=== PATIENT | male | born 1950 | race African-American/Black ===

== ENCOUNTER 2019-01-21 06:40 | Inpatient (IN) | payer MEDICARE, OTHER ==
[2019-01-18 15:26] VITALS: BMI 31.6
[2019-01-21 07:46] LABS: #Eosinphils 0.3 thou/uL (0.0-0.7); #Lymphocytes 2.1 thou/uL (1.20-3.40); #Monocytes 0.6 thou/uL (0.11-0.59); #Neutrophils 2.3 thou/uL (1.40-6.50); %Basophils 0.2 % (0.0-1.0); %Eosinophils 5.3 % (0.0-10.0); %Lymphocytes 39.6 % (21.0-51.0); %Monocytes 11.3 % (0.0-10.0); %Neutrophils 43.7 % (42.0-75.0); Hemoglobin 15.9 g/dL (14.0-18.0); Mean Corpuscular HGB CONC 33.3 g/dL (32.0-36.0); Mean Corpuscular Hemoglobin 30.8 pg (27.0-31.0); Mean Corpuscular Volume 92.6 fL (78.0-98.0); Mean Platelet Volume 9.1 fL (7.4-10.4); Platelet Count 239 thou/uL (130-400); RBC Distribution Width 11.8 % (11.5-14.5); Red Blood Cell (RBC) Count 5.16 mill/uL (4.70-6.10); White Blood Cell (WBC) Count 5.3 thou/uL (4.8-10.8)
[2019-01-21 08:33] LABS: Anion Gap 19 mmol/L (10-20); BUN (Urea Nitrogen) 24 mg/dL (8.4-25.7); Calc. Creatinine Clearance 58 mL/min (70-130); Calcium 9.6 mg/dL (7.8-10.44); Carbon Dioxide 22 mmol/L (23-31); Chloride 102 mmol/L (98-107); Estimated GFR-MDRD 44; Glucose 464 mg/dL (80-115); Sodium 138 mmol/L (136-145)
[2019-01-21] MEDS ORDERED: Insulin Regular 300 UNITS/3 ML VIAL ONE (08:48)
[2019-01-21] MEDS ORDERED: Sodium Chloride 0.9% 10 ML ONE (10:43)
[2019-01-21] MEDS ORDERED: Fentanyl 100 MCG/2 ML VIAL ONE ×4 (11:02→15:54)
[2019-01-21] MEDS ORDERED: HYDROmorphone 2 MG/ML VIAL ONE (13:36)
[2019-01-21] MEDS ORDERED: hydrALAZINE 20 MG/ML VIAL ONE (15:02)
[2019-01-21] MEDS ORDERED: Ondansetron PF 4 MG/2 ML Vial ONE (15:03)
[2019-01-21] MEDS ORDERED: ePHEDrine 50 MG/ML VIAL ONE (15:03)
[2019-01-21] MEDS ORDERED: Glycopyrrolate 0.2 MG/ML 5 ML SYRINGE ONE (15:03)
[2019-01-21] MEDS ORDERED: diphenhydrAMINE 50 MG/ML VIAL ONE (15:03)
[2019-01-21] MEDS ORDERED: PROPOFOL 200 MG/20 ML VIAL ONE (15:03)
[2019-01-21] MEDS ORDERED: PHENYLEPHRINE-NS 100 MCG/ML 10 ML SYRINGE ONE (15:03)
[2019-01-21] MEDS ORDERED: Rocuronium Bromide 10 MG/ML (10ML VIAL) ONE (15:03)
[2019-01-21] MEDS ORDERED: HYDROmorphone 2 MG/ML VIAL SLOW IVP PRN (15:07)
[2019-01-21] MEDS ORDERED: Promethazine HCl 25 MG/ML VIAL IM PRN ×2 (15:07→18:11)
[2019-01-21] MEDS ORDERED: Promethazine HCl 25 MG/ML VIAL SLOW IVP PRN (15:07)
[2019-01-21] MEDS ORDERED: Ondansetron HCl/PF 4 MG/2 ML Vial IVP PRN (15:07)
[2019-01-21] MEDS ORDERED: Promethazine 25 MG TAB PO PRN (18:11)
[2019-01-21] MEDS ORDERED: Mag-Al 1200 mg/1200 mg/30 ML UDCUP PO PRN (18:11)
[2019-01-21] MEDS ORDERED: Morphine 4 MG/ML VIAL SLOW IVP PRN (18:11)
[2019-01-21] MEDS ORDERED: Promethazine HCl 12.5 MG SUPP PR PRN (18:11)
[2019-01-21] MEDS ORDERED: tiZANidine HCl 4 MG TAB PO PRN (18:11)
[2019-01-21] MEDS ORDERED: traMADol HCl 50 MG TAB PO PRN ×2 (18:11)
[2019-01-21] MEDS ORDERED: diphenhydrAMINE 50 MG/ML VIAL IVP PRN (18:11)
[2019-01-21] MEDS ORDERED: HYDROcodone/Acetaminophen 10/325 mg Tablet PO PRN (18:11)
[2019-01-21] MEDS ORDERED: diphenhydrAMINE 25 MG CAP PO PRN (18:11)
[2019-01-21] MEDS ORDERED: Milk Of Magnesia 30 ML UDCUP PO PRN (18:11)
[2019-01-21] MEDS ORDERED: Ondansetron PF 4 MG/2 ML Vial SLOW IVP PRN (18:15)
[2019-01-21] MEDS ORDERED: Morphine 2 MG/ML SYRINGE SLOW IVP PRN (18:18)
[2019-01-21] MEDS: HYDROcodone/Acetaminophen 10/325 mg Tablet PO PRN ×2 (18:41→20:05)
[2019-01-21] MEDS: Sodium Chloride 0.9% 1,000 ML IV SCH (19:00)
--- NOTE | 2019-01-21 19:01 | OP ---
DATE OF PROCEDURE: 01/21/2019 SHEET METAL PATTERN CUTTER: Latoya Lal PA-C PROCEDURES PERFORMED: Right L4-L5 laminectomy, facetectomy, foraminotomy, interbody arthrodesis, intervertebral biomechanical device, local morselized autograft, demineralized bone matrix, posterolateral arthrodesis, pedicle screw instrumentation, L4-L5. DESCRIPTION OF PROCEDURE: The patient was brought to the operating room and intubated. He was rolled in the prone position on gel-filled chest rolls. An incision was made exposing L4 and L5 bilaterally and the level was confirmed by x-ray. We performed right L4-L5 laminectomy, facetectomy, foraminotomy, completely decompressing right L4 and right L5. There was obvious scar tissue in this region and I could see some CSF in this region, but no gustavo dural tear. Next, the disk was incised and debrided and the bony endplates decorticated for the purpose of arthrodesis. An appropriate-sized intervertebral biomechanical PEEK device was brought into the field, filled with demineralized bone matrix, local morselized autograft, and tapped in place securely at L4-5. Next, pedicle screws were placed at L4 and L5 on the right using lateral fluoroscopic guidance and the position was confirmed by x-ray. Carlos was secured between the screws, connected by nuts, which were final tightened. The wound was then extensively irrigated. MAC hemostasis was secured. Combination of demineralized bone matrix and local morselized autograft was laid over the lamina and posterolateral surfaces for the purpose of arthrodesis. Vancomycin powder was applied and the wound was closed in anatomic layers. Job ID: [id number]
[2019-01-21] MEDS ORDERED: cloNIDine 0.1 MG TAB PO PRN (19:42)
[2019-01-21] MEDS ORDERED: hydrALAZINE 20 MG/ML VIAL SLOW IVP PRN (19:42)
[2019-01-21] MEDS ORDERED: Montelukast Sodium 10 mg Tablet PO SCH (21:00)
[2019-01-21] MEDS ORDERED: tiZANidine HCl 4 MG TAB PO SCH (21:00)
[2019-01-21] MEDS ORDERED: Insulin Glargine 60 UNITS in Pre-Filled Syringe 1 EACH SC SCH (21:00)
[2019-01-21] MEDS: Gabapentin 300 MG CAP PO SCH (21:20)
[2019-01-21] MEDS: Carvedilol 6.25 MG TAB PO SCH (21:21)
[2019-01-21] MEDS: Terazosin HCl 5 MG CAP PO SCH (21:22)
--- NOTE | 2019-01-21 21:44 | PDOC.PN ---
- Subjective Encounter Start Date: 01/21/19 Encounter Start Time: 08:30 -: old records requested/rev Patient seen and examined. No new complaints. No overnight events pt has back pain no chest pain - Objective MAR Reviewed: Yes Vital Signs & Weight: Vital Signs (12 hours) Temp Pulse Resp BP BP Pulse Ox 01/21/19 21:21 189/88 H 01/21/19 20:07 82 18 166/79 H 01/21/19 19:40 98.9 F 83 18 178/95 H 99 01/21/19 18:05 67 16 197/86 H 01/21/19 17:20 65 16 187/85 H 01/21/19 16:50 98.1 F 67 16 195/91 H 94 L Weight Weight 233 lb Result Diagrams: 01/21/19 07:30 01/21/19 07:30 Additional Labs: Accuchecks 01/21/19 01/21/19 01/21/19 21:18 18:06 12:30 POC Glucose 285 H 260 H 258 H Phys Exam - Physical Examination Constitutional: NAD HEENT: PERRLA, moist MMs, sclera anicteric Neck: no JVD, supple Respiratory: no wheezing, no rales, no rhonchi Cardiovascular: RRR, no significant murmur, no rub Gastrointestinal: soft, non-tender, no distention, positive bowel sounds Musculoskeletal: no edema, pulses present surgical site with dressing Neurological: non-focal, normal sensation, moves all 4 limbs Lymphatic: no nodes Psychiatric: normal affect, A&O x 3 Skin: no rash, normal turgor Dx/Plan (1) S/P lumbar laminectomy Code(s): Z98.890 - OTHER SPECIFIED POSTPROCEDURAL STATES Status: Acute (2) Hypertension Code(s): I10 - ESSENTIAL (PRIMARY) HYPERTENSION Status: Chronic (3) Obesity (BMI 30.0-34.9) Code(s): E66.9 - OBESITY, UNSPECIFIED Status: Chronic (4) Diabetes type 2, controlled Code(s): E11.9 - TYPE 2 DIABETES MELLITUS WITHOUT COMPLICATIONS Status: Chronic (5) Anxiety and depression Code(s): F41.9 - ANXIETY DISORDER, UNSPECIFIED; F32.9 - MAJOR DEPRESSIVE DISORDER, SINGLE EPISODE, UNSPECIFIED Status: Chronic (6) GERD (gastroesophageal reflux disease) Code(s): K21.9 - GASTRO-ESOPHAGEAL REFLUX DISEASE WITHOUT ESOPHAGITIS Status: Chronic (7) CKD (chronic kidney disease) stage 3, GFR 30-59 ml/min Code(s): N18.3 - CHRONIC KIDNEY DISEASE, STAGE 3 (MODERATE) Status: Chronic - Plan cont current plan of care, PT/OT, DVT proph w/SCDs * code status: Full code * home medication reconciled * for diabetes hyperglycemia protocol treatment * PT/OT * pain control * post operative care as per surgeon * medication reviewed as below * symptomatic treatment. * PRN antihypertensive meds * continue IVF. * will follow Review of Systems - Review of Systems ENT: negative: Ear Pain, Ear Discharge, Nose Pain, Nose Discharge, Nose Congestion, Mouth Pain, Mouth Swelling, Throat Pain, Throat Swelling, Other Respiratory: negative: Cough, Dry, Shortness of Breath, Hemoptysis, SOB with Excertion, Pleuritic Pain, Sputum, Wheezing Cardiovascular: negative: chest pain, palpitations, orthopnea, paroxysmal nocturnal dyspnea, edema, light headedness, other Gastrointestinal: negative: Nausea, Vomiting, Abdominal Pain, Diarrhea, Constipation, Melena, Hematochezia, Other Genitourinary: negative: Dysuria, Frequency, Incontinence, Hematuria, Retention , Other Musculoskeletal: Back Pain. negative: Neck Pain, Shoulder Pain, Arm Pain, Hand Pain, Leg Pain, Foot Pain, Other Skin: negative: Rash, Lesions, Hernando, Bruising, Other - Medications/Allergies Allergies/Adverse Reactions: Allergies Allergy/AdvReac Type Severity Reaction Status Date / Time No Known Allergies Allergy Unverified 01/18/19 14:57 Medications: Current Medications Hydrocodone Bitart/Acetaminophen ([place] 10/325) 1 tab PO Q4H PRN PRN Reason: PAIN (1-3) Last Admin: 01/21/19 20:05 Dose: 1 tab Hydrocodone Bitart/Acetaminophen ([place] 10/325) 2 tab PO Q4H PRN PRN Reason: PAIN (4-6) Al Hydroxide/Mg Hydroxide (Maalox) 30 ml PO Q4H PRN PRN Reason: Heartburn or Indigestion Amlodipine Besylate (Norvasc) 10 mg PO QAM [facility] Carvedilol (Coreg) 6.25 mg PO BID ADA Last Admin: 01/21/19 21:21 Dose: 6.25 mg Clonidine (Catapres) 0.1 mg PO QAM [facility] Clonidine (Catapres) 0.1 mg PO Q4H PRN PRN Reason: Hypertension Dextrose/Water (Dextrose 50%) 25 gm SLOW IVP PRN PRN PRN Reason: Hypoglycemia Diphenhydramine HCl (Benadryl) 25 mg PO Q6H PRN PRN Reason: Itching Diphenhydramine HCl (Benadryl) 25 mg IVP Q6H PRN PRN Reason: Itching Gabapentin (Neurontin) 300 mg PO QID [facility] Last Admin: 01/21/19 21:20 Dose: 300 mg Glucagon (Glucagon) 1 mg IM PRN PRN PRN Reason: Hypoglycemia Hydralazine HCl (Apresoline) 10 mg SLOW IVP Q4H PRN PRN Reason: SBP > 180 and HR < 70 Sodium Chloride (Normal Saline 0.9%) 1,000 mls @ 75 mls/hr IV .[id number] [facility] Insulin Glargine 60 units/ (Miscellaneous Medication) 0.6 mls @ 0 mls/hr SC QPM [facility] Last Admin: 01/21/19 21:18 Dose: 0.6 mls Dextrose/Water (D5w) 1,000 mls @ 0 mls/hr IV .Q0M PRN PRN Reason: Hypoglycemia Insulin Human Lispro (Humalog) 6 units SC 1130,1700 [facility] Insulin Human Lispro (Humalog) 10 units SC 0730 [facility] Loratadine (Claritin) 10 mg PO QAM [facility] Magnesium Hydroxide (Milk Of Magnesium) 30 ml PO Q12H PRN PRN Reason: Constipation Montelukast Sodium (Singulair) 10 mg PO QPM [facility] Last Admin: 01/21/19 21:19 Dose: 10 mg Morphine Sulfate (Morphine) 2 mg SLOW IVP Q1H PRN PRN Reason: .MODERATE BREAKTHROUGH PAIN Morphine Sulfate (Morphine) 4 mg SLOW IVP Q1H PRN PRN Reason: SEVERE BREAKTHROUGH PAIN Ondansetron HCl (Zofran) 4 mg SLOW IVP Q8H PRN PRN Reason: Nausea/Vomiting Pantoprazole Sodium (Protonix) 40 mg PO DAILY [facility] Promethazine HCl (Phenergan) 12.5 mg IM Q4H PRN PRN Reason: Nausea/Vomiting Promethazine HCl (Phenergan) 12.5 mg PO Q4H PRN PRN Reason: Nausea/Vomiting Promethazine HCl (Phenergan Suppository) 12.5 mg MO Q4H PRN PRN Reason: Nausea/Vomiting Sertraline HCl (Zoloft) 50 mg PO QAM [facility] Sodium Chloride (Flush - Normal Saline) 10 ml IVF PRN PRN PRN Reason: Saline Flush Telmisartan (Micardis) 80 mg PO QAM [facility] Terazosin HCl (Hytrin) 10 mg PO BID [facility] Last Admin: 01/21/19 21:22 Dose: 10 mg Tizanidine HCl (Zanaflex) 4 mg PO Q6H PRN PRN Reason: MUSCLE SPASM Last Admin: 01/21/19 18:39 Dose: 4 mg Tizanidine HCl (Zanaflex) 4 mg PO QPM [facility] Last Admin: 01/21/19 18:43 Dose: 4 mg Tramadol HCl (Ultram) 50 mg PO Q6H PRN PRN Reason: PAIN (1-3) Tramadol HCl (Ultram) 100 mg PO Q6H PRN PRN Reason: PAIN (4-6)
[2019-01-21] MEDS ORDERED: Dextrose 50% Abboject 50 ML SYRINGE SLOW IVP PRN (21:45)
[2019-01-21] MEDS ORDERED: Dextrose 5% in Water 1,000 ML IV PRN (21:45)
[2019-01-21] MEDS ORDERED: Diabetic Tussin 200 MG/10 ML UDCUP PO PRN (21:53)
[2019-01-21] MEDS ORDERED: Bisacodyl 5 MG TAB PO PRN (21:53)
[2019-01-21] MEDS ORDERED: Cepastat Lozenges 1 LOZ PO PRN (21:53)
[2019-01-21] MEDS ORDERED: Loperamide HCl 2 MG CAP PO PRN (21:53)
[2019-01-21] MEDS ORDERED: Artificial Tears 18 DROP/0.9 ML EA EYE PRN (21:53)
[2019-01-21] MEDS ORDERED: Senokot S 8.6-50 MG TAB PO PRN (21:53)
[2019-01-21] MEDS ORDERED: Eucerin (Mineral Oil/Petrolatum,White) 30 gm Jar TOP PRN (21:53)
[2019-01-21] MEDS ORDERED: Sodium Chloride 0.65% Nasal 44 ML BOT EA NARE PRN (21:53)
[2019-01-22] MEDS ORDERED: HumaLOG 300 UNITS/3 ML VIAL SC SCH ×2 (07:30→11:30)
[2019-01-22 08:13] VITALS: TEMP 98.9
[2019-01-22] MEDS: Terazosin HCl 5 MG CAP PO SCH (08:22)
[2019-01-22] MEDS: Carvedilol 6.25 MG TAB PO SCH (08:23)
[2019-01-22] MEDS: Gabapentin 300 MG CAP PO SCH (08:23)
[2019-01-22] MEDS ORDERED: Amlodipine 10 MG TAB PO SCH (09:00)
[2019-01-22] MEDS ORDERED: Loratadine 10 MG TAB PO SCH (09:00)
[2019-01-22] MEDS ORDERED: cloNIDine 0.1 MG TAB PO SCH (09:00)
[2019-01-22 09:16] VITALS: BP 154/72
--- NOTE | 2019-01-22 09:20 | DIS ---
DATE OF ADMISSION: 01/21/2019 DATE OF DISCHARGE: 01/22/2019 HISTORY OF PRESENT ILLNESS: The patient is a 68-year-old male, status post L4-L5 TLIF. Following the surgery, he was transitioned to the [facility] floor, where his pain has been well-controlled with p.o. medications, he has been tolerating a regular diet, and he has been voiding without difficulty. He did have some hyperglycemia since his admission as well as elevated blood sugar. This has been managed by the medical team. The patient is awake, alert, comfortable, and in no acute distress. Free active range of motion of all extremities. No focal motor weakness. No reflex asymmetry. Incision is dry and intact. The patient is doing well postoperatively. We will plan to dismiss home later today. We will have the medical team recess his hypertension and diabetes medications. The patient will also follow up with his PCP this week for recheck of these. Job ID: [id number]
[2019-01-22] MEDS: Sodium Chloride 0.9% 1,000 ML IV SCH (09:29)
--- NOTE | 2019-01-22 22:25 | EKG ---
Test Reason : PREOP Blood Pressure : / mmHG Vent. Rate : 067 BPM Atrial Rate : 067 BPM P-R Int : 174 ms QRS Dur : 102 ms QT Int : 412 ms P-R-T Axes : 031 -23 002 degrees QTc Int : 435 ms Normal sinus rhythm Moderate voltage criteria for LVH, may be normal variant Borderline ECG No previous ECGs available Confirmed by Ryan HULL ([id number]) on 01/22/2019 10:25:12 PM Referred By: LAURA Confirmed By:Ryan HULL
== END 2019-01-22 09:30 | disposition home or self-care (01) | DRG 455 ==
LOC: SURG A 06:40 → EDSTATUS 13:27 → 3SE 16:47
PROVIDERS: ADMIT Neurological Surgery; ATTEND Neurological Surgery
PROC: 0SG00AJ Fusion of Lumbar Vertebral Joint with Interbody Fusion Device, Posterior Approach, Anterior Column, Open Approach (ICD-10-PCS; principal; 2019-01-21)
PROC: 0SG0071 Fusion of Lumbar Vertebral Joint with Autologous Tissue Substitute, Posterior Approach, Posterior Column, Open Approach (ICD-10-PCS; 2019-01-21)
PROC: 0SB20ZZ Excision of Lumbar Vertebral Disc, Open Approach (ICD-10-PCS; 2019-01-21)
DX: M54.16 Radiculopathy, lumbar region (principal); I10 Essential (primary) hypertension; E11.9 Type 2 diabetes mellitus without complications; M19.90 Unspecified osteoarthritis, unspecified site; Z87.891 Personal history of nicotine dependence
CPT/HCPCS: 36416; 76000; 80048; 85025; 93005; 93010; C1713; C1768; J0360; J1170; J1815; J1825; J2270; J3010; J3370; J3490

== ENCOUNTER 2019-02-06 10:43 | Outpatient (CLI) | payer MEDICARE, OTHER ==
--- NOTE | 2019-02-06 11:35 | RAD ---
TWO VIEWS LUMBAR SPINE: HISTORY: Followup lumbar spine fusion surgery. COMPARISON: None. FINDINGS: Five lumbar-type vertebral bodies. Vertebral body height is maintained. No fracture. Unilateral ri ght-sided transpedicular screw at L4 and L5. There is a partial fasciectomy on the right at L4. Dis k prosthesis at L4-L5. No significant spondylolisthesis or spondylolysis. Skin tootie are noted. IMPRESSION: Lumbar fusion at L4-L5 with right-sided transpedicular screws. POS: ESTEFANÍA
== END 2019-02-06 10:44 | disposition home or self-care (01) ==
LOC: TBSIIMAG 10:43
PROVIDERS: ATTEND Neurological Surgery
DX: M54.16 Radiculopathy, lumbar region (principal); Z98.1 Arthrodesis status
CPT/HCPCS: 72100